=== PATIENT | male | born 1965 | race Two or more races ===

== ENCOUNTER 2016-05-07 13:25 | Emergency (ER) | payer SELFPAY ==
[~2016-05-07] VITALS: Ht 165.1 cm; Wt 81.6 kg
[2016-05-07 15:00] VITALS: BP 162/100
== END 2016-05-07 16:57 | disposition home or self-care (01) ==
LOC: ER 13:49
DX: S83.91XA Sprain of unspecified site of right knee, initial encounter (principal); X58.XXXA Exposure to other specified factors, initial encounter; Y93.89 Activity, other specified; Y99.8 Other external cause status; Y92.89 Other specified places as the place of occurrence of the external cause
CPT/HCPCS: 73562

== ENCOUNTER 2016-12-09 18:46 | Emergency (ER) | payer MEDICAID ==
[~2016-12-09] VITALS: Ht 165.1 cm; Wt 81.6 kg
[2016-12-09] MEDS ORDERED: GENTAMICIN OPTH sol 0.3% 5ml EACHEYE ONE (21:15)
[2016-12-09] MEDS ORDERED: TETRACAINE HCL 0.5% OPTH(EYE) SOLN 4ML RIGHTEYE ONE (21:15)
[2016-12-09 21:24] VITALS: BP 180/94
[2016-12-09] MEDS ORDERED: FLUORESCEIN SOD 1 MG TEST STRIP LEFTEYE ONE (21:45)
== END 2016-12-09 22:27 | disposition home or self-care (01) ==
LOC: ER 18:49
DX: S05.02XA Injury of conjunctiva and corneal abrasion without foreign body, left eye, initial encounter (principal); H10.9 Unspecified conjunctivitis; X58.XXXA Exposure to other specified factors, initial encounter; Y93.89 Activity, other specified; Y99.8 Other external cause status; Y92.89 Other specified places as the place of occurrence of the external cause

== ENCOUNTER 2018-06-12 13:34 | Emergency (ER) | payer MEDICAID ==
[~2018-06-12] VITALS: Ht 157.5 cm; Wt 81.6 kg
[~2018-06-12 13:34] MED LIST: LISI-646 PO; PANT40T PO
[2018-06-12 14:06] VITALS: BP 148/80
[2018-06-12] MEDS ORDERED: TETRACAINE HCL 0.5% OPTH(EYE) SOLN 4ML LEFTEYE ONE (18:15)
[2018-06-12] MEDS ORDERED: FLUORESCEIN SOD 1 MG TEST STRIP LEFTEYE ONE (18:15)
== END 2018-06-12 19:04 | disposition home or self-care (01) ==
LOC: ER 13:42
DX: S00.212A Abrasion of left eyelid and periocular area, initial encounter (principal); W22.8XXA Striking against or struck by other objects, initial encounter; Y93.89 Activity, other specified; Y92.89 Other specified places as the place of occurrence of the external cause; Y99.8 Other external cause status

== ENCOUNTER → 2020-01-13 | Emergency (ER) | payer MEDICAID ==
[~2020-01-13] VITALS: Ht 162.6 cm; Wt 79.4 kg
[~2020-01-13] MED LIST changes: +KETOROLAC TROMETH 60MG/2ML VIAL IM ONE; +METHOCARBAMOL 500 MG TAB PO ONE
[2020-01-13 16:34] VITALS: BP 124/86
== END | disposition home or self-care (01) ==
LOC: ER 13:05
DX: S33.5XXA Sprain of ligaments of lumbar spine, initial encounter (principal); Z79.899 Other long term (current) drug therapy; X58.XXXA Exposure to other specified factors, initial encounter; Y93.B9 Activity, other involving muscle strengthening exercises; Y92.89 Other specified places as the place of occurrence of the external cause; Y99.8 Other external cause status
CPT/HCPCS: 72100; 96372; 99283; J1885

== ENCOUNTER 2020-08-15 17:49 | Emergency (ER) | payer MEDICAID ==
[~2020-08-15] VITALS: Ht 157.5 cm; Wt 117.9 kg
[~2020-08-15 17:49] MED LIST changes: -KETOROLAC TROMETH 60MG/2ML VIAL IM ONE; -LISI-646 PO; +LISI20TA28 PO; -METHOCARBAMOL 500 MG TAB PO ONE
[2020-08-15 17:52] VITALS: BP 150/90
[2020-08-15] MEDS ORDERED: KETOROLAC TROMETH 60MG/2ML VIAL IM ONE (19:30)
[2020-08-15 21:29] LABS: Urine Bacteria NONE SEEN /hpf (None Seen); Urine Blood Negative /uL (Negative); Urine Specific Gravity 1.025 (1.001-1.035); Urine WBC 3 /hpf (0 - 3)
== END 2020-08-15 22:07 | disposition home or self-care (01) ==
LOC: MERGE 17:49 → ER 17:49
DX: M54.5 Low back pain (principal); M79.18 Myalgia, other site; R81 Glycosuria; F17.210 Nicotine dependence, cigarettes, uncomplicated
CPT/HCPCS: 81001; 93005; 96372; 99284; J1885

== ENCOUNTER 2021-04-21 13:27 | Emergency (ER) | payer MEDICAID ==
[~2021-04-21] VITALS: Ht 157.5 cm; Wt 83.9 kg
[2021-04-21 21:36] VITALS: BP 161/66
== END 2021-04-21 21:42 | disposition home or self-care (01) ==
LOC: ER 13:27
DX: B37.9 Candidiasis, unspecified (principal); E66.9 Obesity, unspecified; E11.9 Type 2 diabetes mellitus without complications; I10 Essential (primary) hypertension

== ENCOUNTER 2021-05-14 15:27 | Inpatient (IN) | payer MEDICAID ==
[~2021-05-14] VITALS: Ht 152.4 cm; Wt 76.4 kg
[2021-05-14] MEDS: SODIUM CHLORIDE 0.9% 1,000 ML IV SCH
[2021-05-14] MEDS ORDERED: SODIUM CHLORIDE 0.9% 500 ML IV ONE (15:45)
[2021-05-14 15:53] LABS: Basophils # (auto) 0 10 ^3/uL (0-0.2); Eosinophils # (auto) 0 10 ^3/uL (0-0.8); Lymphocytes # (auto) 0.8 10 ^3/uL (0.4-5.4); Neutrophils # (auto) 1.1 10 ^3/uL (1.6-8.6); White Blood Cell 2.1 10^3/uL (4.4-10.8)
[2021-05-14 15:54] LABS: Basophils % (auto) 1.7 % (0.0-2.0); Hematocrit 28.6 % (41.0-53.0); Hemoglobin 10.5 g/dL (13.5-17.5); Lymphocytes % (auto) 36.9 % (10.0-50.0); Mean Corpuscular Hemoglobin 35.3 pg (28.0-32.0); Mean Corpuscular Volume 96.6 fL (80.0-100.0); Monocytes # (auto) 0.2 10 ^3/uL (0-1.3); Monocytes % (auto) 9.3 % (0.0-12.0); Neutrophils % (auto) 52.1 % (37.0-80.0); Nucleated Red Blood Cells % 0.3 %; Red Blood Cells 2.97 10^6/uL (4.5-5.90); Red Cell Distribution Width 13.9 % (11.8-14.3)
[2021-05-14 15:55] LABS: Mean Corpuscular Hgb Conc. 36.5 g/dL (32.0-36.0)
[2021-05-14 16:09] LABS: INR 1.07 (0.9-1.15); Partial Thromboplastin Time 35.9 sec (23.6-33.0)
[2021-05-14 16:15] LABS: Albumin 3.1 g/dL (3.4-5.0); Calcium 8.7 mg/dL (8.5-10.1)
[2021-05-14 16:18] LABS: BUN/Creatinine Ratio 14.9; Bilirubin, Total 0.6 mg/dL (0.2-1.0); Total Protein 8.2 g/dL (6.4-8.2)
[2021-05-14] MEDS ORDERED: DEXTROSE (50%) 50ML SYRG IV PRN (23:15)
[2021-05-14] MEDS ORDERED: ACETAMINOPHEN 325 MG TAB PO PRN (23:15)
[2021-05-14] MEDS ORDERED: DOCUSATE SOD 100 MG CAP PO PRN (23:15)
[2021-05-14] MEDS ORDERED: ONDANSETRON HCL 4 MG/2 ML VIAL IV PRN (23:15)
[2021-05-15] MEDS ORDERED: NITROGLYCERIN 0.4 MG SL TAB SL PRN
[2021-05-15] MEDS ORDERED: MORPHINE SULFATE INJECTION 2 MG/ML SYRG IV PRN
[2021-05-15] MEDS: ACCU-CHEK COMFORT CURVE STRIP VI SCH ×4 (06:08→21:57)
[2021-05-15] MEDS: InsuLIN REG 1unit/0.01ml Soln (100units/ml) SC SCH ×4 (06:14→21:57)
[2021-05-15 07:46] LABS: Mean Corpuscular Hemoglobin 35.2 pg (28.0-32.0); Mean Corpuscular Volume 96.7 fL (80.0-100.0); Red Blood Cells 2.69 10^6/uL (4.5-5.90)
[2021-05-15 08:20] LABS: White Blood Cell 1.4 10^3/uL (4.4-10.8)
[2021-05-15 08:21] LABS: Basophils % (manual) 0 (0.0-2.0); Blast Cells 0; Eosinophils % (manual) 0 (0-7); Metamyelocytes % 0; Myelocytes % 0; Promyelocytes % 0; Reactive Lymphocytes 0
[2021-05-15 08:34] LABS: Potassium 3.8 mmol/L (3.5-5.1)
[2021-05-15 08:54] LABS: Albumin 2.7 g/dL (3.4-5.0); BUN/Creatinine Ratio 26.4; Bilirubin, Total 0.4 mg/dL (0.2-1.0); Calcium 8.3 mg/dL (8.5-10.1); Total Protein 7.6 g/dL (6.4-8.2)
[2021-05-15] MEDS ORDERED: IOHEXOL 300 MG/ML 100ML BOTTLE IJ ONE (09:29)
[2021-05-15] MEDS ORDERED: FAMOTIDINE (10MG/ML) 2ML VL IV SCH (10:00)
[2021-05-15] MEDS: ZINC SULFATE 220mg CAP or TAB PO SCH (10:08)
[2021-05-15] MEDS: ASCORBIC ACID 500 MG TAB PO SCH ×2 (10:08→22:13)
[2021-05-15] MEDS: ENOXAPARIN SOD 40 MG/0.4 ML SYRINGE SC SCH (10:08)
[2021-05-15] MEDS: MULTIPLE VITAMIN TAB PO SCH (10:08)
[2021-05-15 10:27] LABS: Ferritin > 1650.0 ng/mL (10-322)
[2021-05-15] MEDS: MAGIC MOUTHWASH 55 ML SUSP MT SCH ×3 (12:23→22:13)
[2021-05-15 14:19] LABS: Band Neutrophils % (manual) 5; Lymphocytes % (manual) 54 (10.0-50.0); Monocytes % (manual) 4 (0-12)
[2021-05-15] MEDS: HYDROcodone-ACET 5/325MG TAB PO PRN ×2 (15:36→21:01)
[2021-05-15] MEDS: SODIUM CHLORIDE 0.9% 1,000 ML IV SCH (15:55)
[2021-05-15 20:00] VITALS: BP 147/82
[2021-05-15 22:00] VITALS: BP 147/82
[2021-05-15] MEDS: PANTOPRAZOLE 40 MG/10 ML VIAL INJ IV SCH (22:13)
[2021-05-15 23:59] LABS: Urine Bacteria FEW /hpf (None Seen); Urine Blood Negative /uL (Negative); Urine Mucus FEW (None Seen); Urine Specific Gravity 1.033 (1.001-1.035); Urine WBC 91 /hpf (0 - 3)
[2021-05-16] MEDS: SODIUM CHLORIDE 0.9% 1,000 ML IV SCH (01:00)
[2021-05-16 03:31] VITALS: BP 147/82
[2021-05-16] MEDS: HYDROcodone-ACET 5/325MG TAB PO PRN ×2 (04:10→20:36)
[2021-05-16 05:00] VITALS: BP 139/76
[2021-05-16] MEDS: MAGIC MOUTHWASH 55 ML SUSP MT SCH ×4 (06:00→22:00)
[2021-05-16] MEDS: InsuLIN REG 1unit/0.01ml Soln (100units/ml) SC SCH ×4 (07:00→22:00)
[2021-05-16] MEDS: ACCU-CHEK COMFORT CURVE STRIP VI SCH ×4 (07:10→22:00)
[2021-05-16 07:24] LABS: Basophils # (auto) 0 10 ^3/uL (0-0.2); Basophils % (auto) 1.2 % (0.0-2.0); Eosinophils # (auto) 0 10 ^3/uL (0-0.8); Eosinophils % (auto) 0.6 % (0.0-7.0); Hematocrit 25.6 % (41.0-53.0); Hemoglobin 9.1 g/dL (13.5-17.5); Lymphocytes # (auto) 0.8 10 ^3/uL (0.4-5.4); Mean Corpuscular Hemoglobin 34.5 pg (28.0-32.0); Mean Corpuscular Hgb Conc. 35.3 g/dL (32.0-36.0); Mean Corpuscular Volume 97.7 fL (80.0-100.0); Monocytes # (auto) 0.1 10 ^3/uL (0-1.3); Neutrophils # (auto) 0.4 10 ^3/uL (1.6-8.6); Neutrophils % (auto) 26.8 % (37.0-80.0); Nucleated Red Blood Cells % 0.4 %; Red Blood Cells 2.62 10^6/uL (4.5-5.90); Red Cell Distribution Width 14.1 % (11.8-14.3)
[2021-05-16 07:50] LABS: Lymphocytes % (auto) 63.4 % (10.0-50.0)
[2021-05-16 07:51] LABS: White Blood Cell 1.3 10^3/uL (4.4-10.8)
[2021-05-16] MEDS ORDERED: LIDOCAINE VISCOUS 2% 15ML UD ONE (08:18)
[2021-05-16] MEDS ORDERED: SODIUM CHLORIDE LOCK 10 ML ONE (08:18)
[2021-05-16] MEDS ORDERED: diphenhdrAMINE HCL 50 MG/1 ML VL ONE (08:18)
[2021-05-16 09:00] VITALS: BP 127/83
[2021-05-16] MEDS: MULTIPLE VITAMIN TAB PO SCH (09:52)
[2021-05-16] MEDS: ENOXAPARIN SOD 40 MG/0.4 ML SYRINGE SC SCH (09:52)
[2021-05-16] MEDS: ZINC SULFATE 220mg CAP or TAB PO SCH (09:52)
[2021-05-16] MEDS: ASCORBIC ACID 500 MG TAB PO SCH ×2 (09:52→22:00)
[2021-05-16] MEDS: PANTOPRAZOLE 40 MG/10 ML VIAL INJ IV SCH (10:24)
[2021-05-16] MEDS: fentaNYL CITRATE 100 MCG/2 ML VL ONE ×2 (12:12→12:15)
[2021-05-16] MEDS: MIDAZOLAM HCL 5 MG/ML-1ML VIAL ONE ×2 (12:12→12:15)
[2021-05-16 13:00] VITALS: BP 130/82
[2021-05-16 17:00] VITALS: BP 151/72
[2021-05-16] MEDS ORDERED: NAP500T PO (20:25)
[2021-05-16] MEDS ORDERED: ACYC1CAP23 PO (20:25)
[2021-05-16 22:00] VITALS: BP 131/73
[2021-05-16] MEDS: PANTOPRAZOLE 40 MG TAB PO SCH (22:00)
[2021-05-17] MEDS: SODIUM CHLORIDE 0.9% 1,000 ML IV SCH ×3 (01:15→19:13)
[2021-05-17] MEDS: HYDROcodone-ACET 5/325MG TAB PO PRN ×4 (03:47→20:07)
[2021-05-17 05:00] VITALS: BP 142/74
[2021-05-17] MEDS: MAGIC MOUTHWASH 55 ML SUSP MT SCH ×4 (06:00→21:44)
[2021-05-17] MEDS: ACCU-CHEK COMFORT CURVE STRIP VI SCH ×4 (06:30→21:44)
[2021-05-17] MEDS: InsuLIN REG 1unit/0.01ml Soln (100units/ml) SC SCH ×4 (06:30→21:45)
[2021-05-17] MEDS: ZINC SULFATE 220mg CAP or TAB PO SCH (09:25)
[2021-05-17] MEDS: MULTIPLE VITAMIN TAB PO SCH (09:26)
[2021-05-17] MEDS: ASCORBIC ACID 500 MG TAB PO SCH ×2 (09:26→21:44)
[2021-05-17] MEDS: PANTOPRAZOLE 40 MG TAB PO SCH ×2 (09:26→21:44)
[2021-05-17 09:30] VITALS: BP 139/76
[2021-05-17] MEDS: ENOXAPARIN SOD 40 MG/0.4 ML SYRINGE SC SCH (10:00)
[2021-05-17 13:36] VITALS: BP 147/84
[2021-05-17 16:45] VITALS: BP 142/79
[2021-05-17 22:00] VITALS: BP 142/81
[2021-05-18] MEDS: HYDROcodone-ACET 5/325MG TAB PO PRN ×4 (04:29→22:40)
[2021-05-18 05:00] VITALS: BP 131/64
[2021-05-18] MEDS: MAGIC MOUTHWASH 55 ML SUSP MT SCH ×4 (06:29→22:00)
[2021-05-18] MEDS: ACCU-CHEK COMFORT CURVE STRIP VI SCH ×4 (06:39→22:01)
[2021-05-18] MEDS: InsuLIN REG 1unit/0.01ml Soln (100units/ml) SC SCH ×4 (06:39→22:00)
[2021-05-18 09:01] VITALS: BP 144/75
[2021-05-18] MEDS: MULTIPLE VITAMIN TAB PO SCH (10:06)
[2021-05-18] MEDS: PANTOPRAZOLE 40 MG TAB PO SCH ×2 (10:06→22:00)
[2021-05-18] MEDS: ZINC SULFATE 220mg CAP or TAB PO SCH (10:06)
[2021-05-18] MEDS: ASCORBIC ACID 500 MG TAB PO SCH ×2 (10:07→22:00)
[2021-05-18 12:22] LABS: Hepatitis B Surface Antibody Negative (Negative)
[2021-05-18 13:00] VITALS: BP 146/76
[2021-05-18 14:22] LABS: Hemoglobin 9.9 g/dL (13.5-17.5); Mean Corpuscular Volume 97.6 fL (80.0-100.0)
[2021-05-18 14:25] LABS: Hematocrit 27.2 % (41.0-53.0); Mean Corpuscular Hemoglobin 35.4 pg (28.0-32.0); Mean Corpuscular Hgb Conc. 36.2 g/dL (32.0-36.0); Red Blood Cells 2.79 10^6/uL (4.5-5.90); Red Cell Distribution Width 14.1 % (11.8-14.3)
[2021-05-18 14:54] LABS: Band Neutrophils % (manual) 0; Basophils % (manual) 0 (0.0-2.0); Blast Cells 0; Eosinophils % (manual) 0 (0-7); Metamyelocytes % 0; Myelocytes % 0; Promyelocytes % 0; White Blood Cell 1.4 10^3/uL (4.4-10.8)
[2021-05-18 16:45] LABS: Lymphocytes % (manual) 63 (10.0-50.0); Monocytes % (manual) 13 (0-12); Reactive Lymphocytes 4
[2021-05-18 17:00] VITALS: BP 145/83
[2021-05-18] MEDS: SODIUM CHLORIDE 0.9% 1,000 ML IV SCH (18:44)
[2021-05-18 22:00] VITALS: BP 142/80
[2021-05-19] MEDS: HYDROcodone-ACET 5/325MG TAB PO PRN ×2 (04:12→09:58)
[2021-05-19 05:00] VITALS: BP 152/82
[2021-05-19] MEDS: MAGIC MOUTHWASH 55 ML SUSP MT SCH ×4 (05:16→22:05)
[2021-05-19] MEDS: ACCU-CHEK COMFORT CURVE STRIP VI SCH ×4 (06:10→22:05)
[2021-05-19] MEDS: InsuLIN REG 1unit/0.01ml Soln (100units/ml) SC SCH ×4 (06:10→23:58)
[2021-05-19 09:00] VITALS: BP 149/76
[2021-05-19] MEDS: ZINC SULFATE 220mg CAP or TAB PO SCH (09:57)
[2021-05-19] MEDS: PANTOPRAZOLE 40 MG TAB PO SCH ×2 (09:57→22:05)
[2021-05-19] MEDS: MULTIPLE VITAMIN TAB PO SCH (09:57)
[2021-05-19] MEDS: ASCORBIC ACID 500 MG TAB PO SCH ×2 (09:58→22:05)
[2021-05-19] MEDS ORDERED: guaiFENesin-DM 100/10mg/5ml SYR PO PRN (11:30)
[2021-05-19 13:00] VITALS: BP 143/80
[2021-05-19] MEDS: SODIUM CHLORIDE 0.9% 1,000 ML IV SCH (15:29)
[2021-05-19] MEDS: HYDROcodone-ACET 7.5/325MG TAB PO PRN ×2 (16:55→22:00)
[2021-05-19 17:00] VITALS: BP 144/83
[2021-05-19 22:00] VITALS: BP 142/75
[2021-05-20] MEDS: HYDROcodone-ACET 7.5/325MG TAB PO PRN ×6 (04:51→18:59)
[2021-05-20 05:00] VITALS: BP 172/87
[2021-05-20] MEDS: MAGIC MOUTHWASH 55 ML SUSP MT SCH ×4 (06:18→21:57)
[2021-05-20] MEDS: InsuLIN REG 1unit/0.01ml Soln (100units/ml) SC SCH ×4 (06:33→22:58)
[2021-05-20] MEDS: ACCU-CHEK COMFORT CURVE STRIP VI SCH ×4 (06:33→21:58)
[2021-05-20 08:35] VITALS: BP 163/86
[2021-05-20] MEDS: ZINC SULFATE 220mg CAP or TAB PO SCH (10:40)
[2021-05-20] MEDS: MULTIPLE VITAMIN TAB PO SCH (10:41)
[2021-05-20] MEDS: ASCORBIC ACID 500 MG TAB PO SCH ×2 (10:41→21:58)
[2021-05-20] MEDS: PANTOPRAZOLE 40 MG TAB PO SCH ×2 (10:41→21:57)
[2021-05-20] MEDS: SODIUM CHLORIDE 0.9% 1,000 ML IV SCH ×2 (12:52→13:52)
[2021-05-20 17:00] VITALS: BP 132/68
[2021-05-20 19:06] LABS: Methylmalonic Acid 146 nmol/L (0-378)
[2021-05-20] MEDS: HYDROcodone-ACET 5/325MG TAB PO PRN (20:06)
[2021-05-20 22:00] VITALS: BP 163/88
[2021-05-21 05:00] VITALS: BP 162/97
[2021-05-21] MEDS: ACCU-CHEK COMFORT CURVE STRIP VI SCH ×2 (06:10→11:30)
[2021-05-21] MEDS: MAGIC MOUTHWASH 55 ML SUSP MT SCH ×2 (06:10→12:53)
[2021-05-21] MEDS: HYDROcodone-ACET 7.5/325MG TAB PO PRN ×2 (06:10→12:59)
[2021-05-21] MEDS: InsuLIN REG 1unit/0.01ml Soln (100units/ml) SC SCH ×2 (06:12→11:30)
[2021-05-21 09:00] VITALS: BP 132/73
[2021-05-21] MEDS ORDERED: MAGIC MT (11:33)
[2021-05-21] MEDS ORDERED: HYDR-4902 PO (11:33)
[2021-05-21] MEDS ORDERED: PANT40T PO (11:33)
[2021-05-21] MEDS: MULTIPLE VITAMIN TAB PO SCH (12:52)
[2021-05-21] MEDS: ZINC SULFATE 220mg CAP or TAB PO SCH (12:52)
[2021-05-21] MEDS: PANTOPRAZOLE 40 MG TAB PO SCH (12:53)
[2021-05-21] MEDS: ASCORBIC ACID 500 MG TAB PO SCH (12:53)
== END 2021-05-21 14:55 | disposition home or self-care (01) | DRG 241 ==
LOC: ER 15:27 → OVERFLOW 23:55 → WEST WING 05-15 17:58
PROVIDERS: ADMIT Nurse Practitioner Family; ATTEND Family Medicine
PROC: 0DB68ZX Excision of Stomach, Via Natural or Artificial Opening Endoscopic, Diagnostic (ICD-10-PCS; principal; 2021-05-16 12:10)
DX: K29.71 Gastritis, unspecified, with bleeding (principal); U07.1 COVID-19; E44.0 Moderate protein-calorie malnutrition; R64 Cachexia; E87.1 Hypo-osmolality and hyponatremia; E88.09 Other disorders of plasma-protein metabolism, not elsewhere classified; E11.21 Type 2 diabetes mellitus with diabetic nephropathy; D64.9 Anemia, unspecified; E11.40 Type 2 diabetes mellitus with diabetic neuropathy, unspecified; D72.819 Decreased white blood cell count, unspecified; E11.65 Type 2 diabetes mellitus with hyperglycemia; K14.0 Glossitis; I10 Essential (primary) hypertension; K13.79 Other lesions of oral mucosa; R79.9 Abnormal finding of blood chemistry, unspecified; Z68.32 Body mass index [BMI] 32.0-32.9, adult; Z82.49 Family history of ischemic heart disease and other diseases of the circulatory system; Z83.3 Family history of diabetes mellitus; Z87.891 Personal history of nicotine dependence
CPT/HCPCS: 36415; 71045; 74177; 80053; 81001; 82270; 82607; 82728; 82962; 83010; 83540; 83550; 83615; 85007; 85025; 85027; 85045; 85060; 85610; 85730; 86038; 86703; 86706; 86803; 86850; 86880; 86900; 86901; 87340; 87426; 88184; 88187; 88341; 93005; 96360; C9113; G0378; J1815; J2250; J3490